=== PATIENT | male | born 1960 | race Two or more races ===

== ENCOUNTER 2017-02-08 09:33 | Emergency (ER) | payer OTHER, MEDICAID ==
[~2017-02-08] VITALS: Ht 177.8 cm; Wt 81.6 kg
[~2017-02-08 09:33] MED LIST: BRIN1SUS6 OP; CELE100C82 PO; DICL-164 PO; GEMF600T3 PO; LISI10TA6 PO; OMEP20CA74 PO; TRAV0.00 OP
[2017-02-08 09:41] VITALS: BP 137/97
[2017-02-08] MEDS: MORPHINE SULFATE 10 MG/ML INJ 1ML SDV IM ONE (11:19)
[2017-02-08] MEDS: PROMETHAZINE HCL 25 MG/ML 1ML IM ONE (11:20)
== END 2017-02-08 11:48 | disposition home or self-care (01) ==
LOC: ER 09:37
DX: G89.29 Other chronic pain (principal); M54.5 Low back pain; J45.909 Unspecified asthma, uncomplicated; K21.9 Gastro-esophageal reflux disease without esophagitis; I10 Essential (primary) hypertension
CPT/HCPCS: 96372; 99284; J2270; J2550

== ENCOUNTER 2017-03-15 09:19 | Emergency (ER) | payer OTHER, MEDICAID ==
[~2017-03-15] VITALS: Ht 180.3 cm; Wt 88.9 kg
[2017-03-15 09:28] VITALS: BP 141/92
[2017-03-15] MEDS ORDERED: PROMETHAZINE HCL 25 MG/ML 1ML IM ONE (10:45)
[2017-03-15] MEDS ORDERED: MORPHINE SULFATE 10 MG/ML INJ 1ML SDV IM ONE (10:45)
== END 2017-03-15 11:15 | disposition home or self-care (01) ==
LOC: ER 09:24
DX: G89.29 Other chronic pain (principal); M54.5 Low back pain; J45.909 Unspecified asthma, uncomplicated; K21.9 Gastro-esophageal reflux disease without esophagitis; I10 Essential (primary) hypertension
CPT/HCPCS: 96372; 99284; J2270; J2550

== ENCOUNTER 2017-05-05 15:36 | Emergency (ER) | payer OTHER, MEDICAID ==
[~2017-05-05] VITALS: Ht 180.3 cm; Wt 87.5 kg
[2017-05-05 16:01] VITALS: BP 121/83
== END 2017-05-05 17:35 | disposition home or self-care (01) ==
LOC: ER 15:39
DX: H10.213 Acute toxic conjunctivitis, bilateral (principal); I10 Essential (primary) hypertension; K21.9 Gastro-esophageal reflux disease without esophagitis; J45.909 Unspecified asthma, uncomplicated

== ENCOUNTER 2018-05-13 09:57 | Emergency (ER) | payer OTHER, MEDICAID ==
[~2018-05-13] VITALS: Ht 180.3 cm; Wt 88.9 kg
[~2018-05-13 09:57] MED LIST changes: -GEMF600T3 PO; +GEMF600T7 PO
[2018-05-13 11:15] VITALS: BP 147/78
[2018-05-13] MEDS ORDERED: KETOROLAC TROMETH 60MG/2ML VIAL IM ONE (11:30)
[2018-05-13] MEDS ORDERED: methylPREDNISolone SOD SUCC 125 MG/2 ML VL IM ONE (11:30)
== END 2018-05-13 15:14 | disposition home or self-care (01) ==
LOC: ER 09:57
DX: T78.40XA Allergy, unspecified, initial encounter (principal); J45.909 Unspecified asthma, uncomplicated; K21.9 Gastro-esophageal reflux disease without esophagitis; I10 Essential (primary) hypertension; Z90.49 Acquired absence of other specified parts of digestive tract; Z79.899 Other long term (current) drug therapy; X58.XXXA Exposure to other specified factors, initial encounter
CPT/HCPCS: 96372; 99284; J1885; J2930

== ENCOUNTER 2018-05-19 20:24 | Emergency (ER) | payer OTHER, MEDICAID ==
[~2018-05-19] VITALS: Ht 180.3 cm; Wt 88.9 kg
[2018-05-19 20:30] VITALS: BP 140/97
[2018-05-20] MEDS ORDERED: methylPREDNISolone SOD SUCC 125 MG/2 ML VL IM ONE (00:30)
[2018-05-20] MEDS ORDERED: KETOROLAC TROMETH 60MG/2ML VIAL IM ONE (00:30)
== END 2018-05-20 00:42 | disposition home or self-care (01) ==
LOC: ER 20:24
DX: B02.9 Zoster without complications (principal); J45.909 Unspecified asthma, uncomplicated; K21.9 Gastro-esophageal reflux disease without esophagitis; I10 Essential (primary) hypertension; Z90.49 Acquired absence of other specified parts of digestive tract; Z79.899 Other long term (current) drug therapy
CPT/HCPCS: 96372; 99284; J1885; J2930

== ENCOUNTER → 2018-05-19 | Emergency (ER) | payer OTHER, MEDICAID | END | disposition left against medical advice (07) | LOC: ER 22:26 | DX: L98.8 Other specified disorders of the skin and subcutaneous tissue (principal); Z53.21 Procedure and treatment not carried out due to patient leaving prior to being seen by health care provider ==

== ENCOUNTER 2019-10-20 18:24 | Emergency (ER) | payer OTHER, MEDICAID ==
[~2019-10-20] VITALS: Ht 180.3 cm; Wt 88.0 kg
[2019-10-20 18:36] VITALS: BP 126/89
[2019-10-20] MEDS ORDERED: ALBUTEROL SULF 2.5 MG/0.5ML(0.5%) NEB SOLN NEB ONE (19:15)
[2019-10-20] MEDS ORDERED: IPRATROPIUM BROM 0.5 MG/2.5ML INH SOL NEB ONE (19:15)
== END 2019-10-20 19:34 | disposition home or self-care (01) ==
LOC: ER 18:24
DX: J45.909 Unspecified asthma, uncomplicated (principal); J06.9 Acute upper respiratory infection, unspecified; I10 Essential (primary) hypertension; K21.9 Gastro-esophageal reflux disease without esophagitis; Z90.49 Acquired absence of other specified parts of digestive tract
CPT/HCPCS: 71045; 93005; 94640; 99283; J7644

== ENCOUNTER 2024-10-13 19:20 | Emergency (ER) | payer OTHER, MEDICAID ==
[~2024-10-13] VITALS: Ht 177.8 cm; Wt 99.6 kg
[2024-10-13 19:20] VITALS: BP 149/80; PULSE 85; RESP 18; TEMP 97.8; O2SAT 97
[~2024-10-13 19:20] MED LIST changes: -BRIN1SUS6 OP; +BRIN1SUS7 OP; -DICL-164 PO; +DICL75TA4 PO; +GEMF-66 PO; -GEMF600T7 PO; +LISI10TA34 PO; -LISI10TA6 PO
[2024-10-13 20:21] LABS: Urine Blood 3+ /uL (Negative); Urine Clarity Ex.Turbid (Clear); Urine Color Dark-Red (Yellow); Urine Protein, UAD 2+ (Negative); Urine Specific Gravity 1.023 (1.001-1.035); Urine Urobilinogen Normal (Negative)
[2024-10-13 20:29] LABS: Urine Bacteria FEW /hpf (None Seen); Urine Squamous Epithelial Cell None Seen /hpf (<5); Urine WBC 39 /HPF (0-3)
--- NOTE | 2024-10-13 21:21 | DVH ---
Exam: CT CT AB PEL WO CON-NO ORAL OR IV History: flank pain/hematuria Comparison Study: None available at time of dictation. TECHNIQUE: Multidetector CT of the abdomen was performed from lung bases to pubic symphysis. Imaging was performed without IV contrast. Axial, coronal and sagittal multiplanar reformats were obtained fr om the axial data set by the technologist. Radiation Dose Information: CT Dose: CTDI volume is 20.1 mGy. Dose-length product is 1036.93 mGy*cm FINDINGS: Evaluation of solid organs is limited due to lack of intravenous contrast use. Findings: Lung Bases: No acute or significant lung base finding. Normal heart size. No pleural or pericardial effusion. Liver: Hepatic steatosis. Gallbladder and Biliary Tree: Unremarkable Spleen: Unremarkable Pancreas: The pancreas is grossly normal in appearance. Adrenal Glands: Unremarkable Kidneys: Kidneys are grossly normal without calculi or hydronephrosis. Bladder: A 4.4 x 2.1 cm density in the bladder on the right etiology uncertain consider bladder ultra sound for further evaluation. Bowel: The stomach is grossly normal in appearance. Small bowel and colon are normal in caliber and d istribution. The appendix is not visualized; however, no secondary findings of acute appendicitis id entified. Ascites: Absent Lymphadenopathy: No mesenteric, retroperitoneal or periportal lymphadenopathy. Abdominal Wall and Mesentery: Unremarkable. Vasculature: The visualized abdominal aorta is normal in size and caliber. Evaluation of abdominal a nd pelvic vessels is limited due to lack of intravenous contrast. Pelvic Organs: Prostate measures 8 x 7.1 cm correlate with PSA. Musculoskeletal: No aggressive focal bony lesions, acute fractures or dislocation. Soft tissues: Unremarkable IMPRESSION: 1. Hepatic steatosis 2. Enlarged prostate measuring 8 x 7.1 cm. 3. Correlate with PSA 4. There is a 4.4 x 2.1 cm density in the bladder on the right etiology uncertain consider bladder ul trasound. Radiation optimization: All CT scans at this facility use at least one of these dose optimization jorge hniques: automated exposure control mA and/or kV adjustment per patient size (includes targeted exam s where dose is matched to clinical indication) or iterative reconstruction.
[2024-10-13 21:36] LABS: Basophils # (auto) 0.1 10 ^3/uL (0-0.2); Basophils % (auto) 0.9 % (0.0-2.0); Eosinophils # (auto) 0.2 10 ^3/uL (0-0.8); Eosinophils % (auto) 2.1 % (0.0-7.0); Hematocrit 40.8 % (41.0-53.0); Lymphocytes # (auto) 1.9 10 ^3/uL (0.4-5.4); Lymphocytes % (auto) 21.6 % (10.0-50.0); Mean Corpuscular Hemoglobin 28.6 pg (28.0-32.0); Mean Corpuscular Hgb Conc. 34.2 g/dL (32.0-36.0); Mean Corpuscular Volume 83.5 fL (80.0-100.0); Monocytes # (auto) 0.7 10 ^3/uL (0-1.3); Monocytes % (auto) 7.5 % (0.0-12.0); Neutrophils # (auto) 6.1 10 ^3/uL (1.6-8.6); Neutrophils % (auto) 67.9 % (37.0-80.0); Nucleated Red Blood Cells % 0.3 %; Platelet Count (auto) 202 10^3/uL (140-450); Red Blood Cells 4.89 10^6/uL (4.5-5.90); Red Cell Distribution Width 14.4 % (11.8-14.3); White Blood Cell 8.9 10^3/uL (4.4-10.8)
[2024-10-13 21:50] LABS: Chloride 104 mmol/L (98-107); Potassium 4.4 mmol/L (3.5-5.1); Sodium 140 mmol/L (136-145)
[2024-10-13 21:51] LABS: Anion Gap 6 (5-15); Carbon Dioxide 30 mmol/L (20-31)
[2024-10-13 21:56] LABS: BUN/Creatinine Ratio 19.2 (10.0-20.0); Blood Urea Nitrogen 20 mg/dL (9-23); Glucose 98 mg/dL (74-106)
[2024-10-13 21:57] LABS: Calcium 10.6 mg/dL (8.7-10.4)
--- NOTE | 2024-10-13 22:43 | DVH ---
INDICATION: hematuria, w/ density in bladder on ct abdomen/pelvis TECHNIQUE: Multiple real-time grayscale transabdominal sonographic images along with color and duplex Doppler bladder obtained in this male patient. FINDINGS: Bladder wall measures 2.1 mm Ureteral jets were not visualized. Prevoid bladder volume 347 cc Prostate measures 8.4 x 7.2 x 7.1 cm volume is 221.87 cc. There is a 4.9 x 4 x 2.3 cm heterogeneous avascular structure in the inferior portion of the bladder this may represent a hematoma. IMPRESSION: 1. Bladder volume is 347 cc 2. Prostate enlarged and measures 8.4 x 7.2 x 7.1 cm. Bladder volume is 3. There is a 4.9 x 4 x 2.3 cm avascular heterogeneous structure in the inferior portion of the blad jayla most likely a hematoma. 4. Bladder jets not visualized at this time
--- NOTE | 2024-10-13 23:11 | ED.PDOC ---
General HPI Comments 64-year-old male presents to ER with urinary complaint x1 day. Patient with PMH of BPH and kidney stones reports that he "passed a painful" kidney stone this morning at 11:30 am and has since been experiencing hematuria. Denies current pain and denies use of medications for current symptoms. 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 Patient also states he is under the care of a urologist that he last followed-up with 2 months ago. Denies fever, n/v, abdominal/pelvic pain, body aches, chills, night sweats, trauma/injury, fatigue, weight changes, further changes in urination, rectal pain or any further symptoms/complaints Chief Complaint: Urinary Time Seen by MD: 20:14 Primary Care Provider: JULI Russell notes: Nurses Notes, Medications, Allergies Allergies: Coded Allergies: NO KNOWN ALLERGIES (Unverified , 01/23/14) Home Meds Reported Medications Gemfibrozil (Gemfibrozil) 600 Mg Tab, 600 MG PO BID, TAB 01/24/14 Diclofenac Sodium (Diclofenac Sodium Dr) 75 Mg Tab, 75 MG PO BID, TAB 01/24/14 Lisinopril (Lisinopril) 10 Mg Tab, 10 MG PO DAILY, TAB 01/24/14 Travoprost (Travatan Z) 0.004 % Rogelio, 0.004 % OP, ROGELIO 01/24/14 Brinzolamide-Brimonidine Tartr (SIMBRINZA) 1 Ml Josie, 1 DROP OP TID 01/24/14 Omeprazole (PRILOSEC) 20 Mg Cap, 40 MG PO DAILY, CAP 01/24/14 Celecoxib (Celebrex) 100 Mg Cap, 200 MG PO Q12HR, MG 01/24/14 Information Source: Patient Mode of Arrival: Ambulatory Past Medical History PAST MEDICAL HISTORY: Asthma, GERD, HTN, Kidney Stones Past Medical History (Other): BPH Legally blind Surgical History: Appendectomy Family History Family History: Unobtainable Social History Smoker: Non-Smoker Alcohol: Denies ETOH Use Drugs: Denies Drug Use Lives In: Home Constitutional: denies: chills, diaphoresis, fatigue, fever, malaise, sweats, weakness, others EENTM: denies: blurred vision, double vision, ear bleeding, ear discharge, ear drainage, ear pain, ear ringing, eye pain, eye redness, hearing loss, mouth pain, mouth swelling, nasal discharge, nose bleeding, nose congestion, nose pain, photophobia, tearing, throat pain, throat swelling, voice changes, others Respiratory: denies: cough, hemoptysis, orthopnea, SOB at rest, shortness of breath, SOB with excertion, stridor, wheezing, others Cardiovascular: denies: chest pain, dizzy spells, diaphoresis, Dyspnea on exertion, edema, irregular heart beat, left arm pain, lightheadedness, palpitations, PND, syncope, others Gastrointestinal: denies: abdomen distended, abdominal pain, blood streaked bowels, constipated, diarrhea, dysphagia, difficulty swallowing, hematemesis, melena, nausea, poor appetite, poor fluid intake, rectal bleeding, rectal pain, vomiting, others Genitourinary: reports: others (As stated in HPI) Neurological: denies: dizziness, fainting, headache, left sided numbness, left sided weakness, numbness, paresthesia, pre-existing deficit, right sided numbness, right sided weakness, seizure, speech problems, tingling, tremors, weakness, others Musculoskeletal: denies: back pain, gout, joint pain, joint swelling, muscle pain, muscle stiffness, neck pain, others Integumetry: denies: bruises, change in color, change in hair/nails, dryness, laceration, lesions, lumps, rash, wounds, others Allergic/Immunocompromised: denies: Difficulty Healing, Frequent Infections, Hives, Itching, others Hematologic/Lymphatic: denies: anemia, blood clots, easy bleeding, easy bruising, swollen glands, others Endocrine: denies: excessive hunger, excessive sweating, excessive thirst, excessive urination, flushing, intolerance to cold, intolerance to heat, unexplained weight gain, unexplained weight loss, others Psychiatric: denies: anxiety, bipolar disorder, depression, hopeless, panic disorder, schizophrenia, sleepless, suicidal, others Physical Exam General Appearance: No Apparent Distress, Obese HEENT: PERRL/EOMI Neck: Full Range of Motion, Non-Tender, Normal Respiratory: Chest Non-Tender, Lungs Clear, No Accessory Muscle Use, No Respiratory Distress, Normal Breath Sounds Cardiovascular: No Murmur, No Gallop, Regular Rate/Rhythm Breast Exam: Deferred Gastrointestinal: No Organomegaly, Non Tender, No Pulsatile Mass, Normal Bowel Sounds, Soft Genitalia: Deferred Pelvic: Deferred Rectal: Deferred Extremities: Normal capillary refill, Normal range of motion Neurologic: Alert, pharmacy student II-XII nml as Tested, No Motor Deficits, Normal Affect, Normal Mood, No Sensory Deficits Cerebellar Function: Normal Reflexes: Normal Skin: Dry, Normal Color, Warm Lymphatic: No Adenopathy Was a procedure done? Was a procedure done?: No Sedation Sedation?: No Differential Diagnosis Kidney stone (Female): N/A Kidney stone (Male): Pyelonephritis, Renal failure, Urinary obstruction, Urolithiasis, Other (Bladder trauma) X-Ray, Labs, Meds, VS Vital Signs Date Time Temp Pulse Resp B/P (MAP) Pulse Ox O2 Delivery O2 Flow Rate FiO2 10/13/24 19:20 97.8 85 18 149/80 (103) 97 97.8 Lab Test 10/13/24 21:24 10/13/24 19:50 Range/Units White Blood Count 8.9 4.4-10.8 10^3/uL Red Blood Count 4.89 4.5-5.90 10^6/uL Hemoglobin 14.0 13.5-17.5 g/dL Hematocrit 40.8 L 41.0-53.0 % Mean Corpuscular Volume 83.5 80.0-100.0 fL Mean Corpuscular Hemoglobin 28.6 28.0-32.0 pg Mean Corpuscular Hemoglobin Concent 34.2 32.0-36.0 g/dL Red Cell Distribution Width 14.4 H 11.8-14.3 % Platelet Count 202 140-450 10^3/uL Mean Platelet Volume 8.1 6.9-10.8 fL Neutrophils (%) (Auto) 67.9 37.0-80.0 % Lymphocytes (%) (Auto) 21.6 10.0-50.0 % Monocytes (%) (Auto) 7.5 0.0-12.0 % Eosinophils (%) (Auto) 2.1 0.0-7.0 % Basophils (%) (Auto) 0.9 0.0-2.0 % Neutrophils # (Auto) 6.1 1.6-8.6 10 ^3/uL Lymphocytes # (Auto) 1.9 0.4-5.4 10 ^3/uL Monocytes # (Auto) 0.7 0-1.3 10 ^3/uL Eosinophils # (Auto) 0.2 0-0.8 10 ^3/uL Basophils # (Auto) 0.1 0-0.2 10 ^3/uL Nucleated Red Blood Cells 0.3 % Sodium Level 140 136-145 mmol/L Potassium Level 4.4 3.5-5.1 mmol/L Chloride Level 104 98-107 mmol/L Carbon Dioxide Level 30 20-31 mmol/L Anion Gap 6 5-15 Blood Urea Nitrogen 20 9-23 mg/dL Creatinine 1.04 0.700-1.30 mg/dL Glomerular Filtration Rate Calc 81 >90 mL/min BUN/Creatinine Ratio 19.2 10.0-20.0 Serum Glucose 98 74-106 mg/dL Calcium Level 10.6 H 8.7-10.4 mg/dL Free Prostate Specific Antigen Pending Percent Free Prostate Specific Ag Pending Prostate Specific Antigen Total Pending Urine Color Dark-red Yellow Urine Clarity Ex.turbid Clear Urine pH 6.0 5.0-9.0 Urine Specific [place] 1.023 1.001-1.035 Urine Protein 2+ H Negative Urine Ketones Negative Negative Urine Blood 3+ H Negative /uL Urine Nitrite Negative Negative Urine Bilirubin Negative Negative Urine Urobilinogen Normal Negative mg/dL Urine Leukocyte Esterase Negative Negative /uL Urine RBC 6654 0 - 3 /hpf Urine Microscopic WBC 39 H 0-3 /HPF Urine Squamous Epithelial Cells None seen <5 /hpf Urine Bacteria Few H None Seen /hpf Urine Glucose Normal Normal mg/dL PATIENT: SONIA FINNEGANACCT: [id number]: [id number] : 1960 LOC: ER ROOM / BED: / AGE / SEX: 64 / M ADM STATUS: REG ER SERVICE 29 ORDERING PHYSICIAN: KAILA EASLEY PROCEDURE(s): BLDR - BLADDER REASON: hematuria, w/ density in bladder on ct abdomen/pelvis ORDER NUMBER(s): [id number], ACCESSION NUMBER(s): [id number] INDICATION: hematuria, w/ density in bladder on ct abdomen/pelvis TECHNIQUE: Multiple real-time grayscale transabdominal sonographic images along with color and duplex Doppler bladder obtained in this male patient. FINDINGS: Bladder wall measures 2.1 mm Ureteral jets were not visualized. Prevoid bladder volume 347 cc Prostate measures 8.4 x 7.2 x 7.1 cm volume is 221.87 cc. There is a 4.9 x 4 x 2.3 cm heterogeneous avascular structure in the inferior portion of the bladder this may represent a hematoma. IMPRESSION: 1. Bladder volume is 347 cc 2. Prostate enlarged and measures 8.4 x 7.2 x 7.1 cm. Bladder volume is 3. There is a 4.9 x 4 x 2.3 cm avascular heterogeneous structure in the inferior portion of the bladder most likely a hematoma. 4. Bladder jets not visualized at this time ATED BY: FIDEL DILL Jr., DO DICTATED DATE/TIME: 10/13/242239 SIGNED BY: FIDEL DILL Jr., SIGNED DATE/TIME: 10/13/242239 CC: PATIENT: SONIA FINNEGAN ACCT: [id number] UNIT: [id number] : 1960 LOC: ER ROOM / BED: / AGE / SEX: 64 / M ADM STATUS: REG ER SERVICE 42 ORDERING PHYSICIAN: KAILA EASLEY PROCEDURE(s): ABPL - CT AB PEL WO CON-NO ORAL OR IV REASON: flank pain/hematuria ORDER NUMBER(s): [id number], ACCESSION NUMBER(s): [id number] Exam: CT CT AB PEL WO CON-NO ORAL OR IV History: flank pain/hematuria Comparison Study: None available at time of dictation. TECHNIQUE: Multidetector CT of the abdomen was performed from lung bases to pubic symphysis. Imaging was performed without IV contrast. Axial, coronal and sagittal multiplanar reformats were obtained from the axial data set by the technologist. Radiation Dose Information: CT Dose: CTDI volume is 20.1 mGy. Dose-length product is 1036.93 mGy*cm FINDINGS: Evaluation of solid organs is limited due to lack of intravenous contrast use. Findings: Lung Bases: No acute or significant lung base finding. Normal heart size. No pleural or pericardial effusion. Liver: Hepatic steatosis. Gallbladder and Biliary Tree: Unremarkable Spleen: Unremarkable Pancreas: The pancreas is grossly normal in appearance. Adrenal Glands: Unremarkable Kidneys: Kidneys are grossly normal without calculi or hydronephrosis. Bladder: A 4.4 x 2.1 cm density in the bladder on the right etiology uncertain consider bladder ultrasound for further evaluation. Bowel: The stomach is grossly normal in appearance. Small bowel and colon are normal in caliber and distribution. The appendix is not visualized; however, no secondary findings of acute appendicitis identified. Ascites: Absent Lymphadenopathy: No mesenteric, retroperitoneal or periportal lymphadenopathy. Abdominal Wall and Mesentery: Unremarkable. Vasculature: The visualized abdominal aorta is normal in size and caliber. Evaluation of abdominal and pelvic vessels is limited due to lack of intravenous contrast. Pelvic Organs: Prostate measures 8 x 7.1 cm correlate with PSA. Musculoskeletal: No aggressive focal bony lesions, acute fractures or dislocation. Soft tissues: Unremarkable IMPRESSION: 1. Hepatic steatosis 2. Enlarged prostate measuring 8 x 7.1 cm. 3. Correlate with PSA 4. There is a 4.4 x 2.1 cm density in the bladder on the right etiology uncertain consider bladder ultrasound. Radiation optimization: All CT scans at this facility use at least one of these dose optimization techniques: automated exposure control mA and/or kV adjust ment per patient size (includes targeted exams where dose is matched to clinical indication) or iterative reconstruction. ATED BY: FIDEL DILL Jr., DO DICTATED DATE/TIME: 10/13/242117 SIGNED BY: FIDEL DILL Jr., SIGNED DATE/TIME: 10/13/242117 CC: CBC reviewed without any significant abnormalities BMP reviewed without any significant abnormalities PSA ordered CT abdomen/pelvis without contrast reviewed Bladder ultrasound reviewed Urinalysis reviewed-urine blood 3+, urine nitrites negative, urine leukocyte esterase negative Patient had improvement in symptoms, urinating without difficulty/pain and in no distress during ER visit/prior to discharge Case and imaging results reviewed and discussed with Dr. Connolly who's agreeable with that patient can be discharged home with close urology follow-up Advised on rest/no strenuous activity and to drink plenty of fluids Patient provided copies of the imaging reports and imaging reports were reviewed and discussed with patient in full details. Patient verbalized understanding and states that he is aware of the findings of his current enlarged prostate findings and notes he will make an appointment with his urologist this week. Advised to follow up with PCP and Urology in 1-2 days Patient verbalized understanding and agreeable with current plan of care Advised to return to ER immediately if symptoms worsen Images Reviewed?: Images reviewed and evaluated by me Time of 1ST Reevaluation: 22:44 Reevaluation 1ST: N/A Patient Education/Counseling: Diagnosis, Treatment, Prognosis, Need For Follow Up Family Education/Counseling: Diagnosis, Treatment, Prognosis, Need For Follow Up Departure 1 Departure Time of Disposition: 23:10 Impression: Primary Impression: Hematuria Qualified Codes: R31.9 - Hematuria, unspecified Additional Impressions: Hematoma of bladder wall Qualified Codes: S37.22XA - Contusion of bladder, initial encounter History of nephrolithiasis Disposition: 01 HOME / SELF CARE / HOMELESS Condition: Stable Discharged With: Inspector Final [employer] Mechanical Critical Care Note Critical Care Time?: No Stability Stability form required: No Heart Score Heart Score: Heart Score Response (Comments) Value History N/A 0 EKG N/A 0 Age N/A 0 Risk Factors N/A 0 Troponin N/A 0 Total 0 KAILA EASLEY Oct 13, 2024 23:11
[2024-10-15 11:07] LABS: PSA Free 1.86 ng/mL; Prostate Specific Antigen 8.6 ng/mL (0.0-4.0)
== END 2024-10-13 23:26 | disposition home or self-care (01) ==
LOC: ER 19:20
DX: S37.22XA Contusion of bladder, initial encounter (principal); R31.9 Hematuria, unspecified; X58.XXXA Exposure to other specified factors, initial encounter; Y93.89 Activity, other specified; Y92.89 Other specified places as the place of occurrence of the external cause; Y99.8 Other external cause status
CPT/HCPCS: 36415; 74176; 76857; 80048; 81001; 84154; 85025